=== PATIENT | female | born 1975 | race Caucasian/White ===

== ENCOUNTER 2016-08-09 19:44 | Emergency (ER) | payer MEDICARE, MEDICAID ==
[~2016-08-09] VITALS: Ht 162.6 cm; Wt 100.0 kg
[2016-08-09 19:58] VITALS: BP 125/93; PULSE 79; RESP 12; O2SAT 97
--- NOTE | 2016-08-09 20:08 | ED.REPORT ---
HPI-Extremity Problem Upper Date of Service Aug 09, 2016 ED Provider: Truman Nelson MD Pt is a 41 y.o. female who presents to the ED c/o left hand pain onset today. Pt states that she got it stuck in a bed cot when she was closing it. She states that it took her several minutes to get her hand free. She denies any other injuries. Nursing Notes Stated Complaint: LEFT HAND PAIN Chief Complaint: Extremity Trauma Nursing Notes Reviewed: Yes Allergies: Coded Allergies: Sulfa (Sulfonamide Antibiotics) (Verified Allergy, Intermediate, rash, 08/09) General Time Seen by MD: 20:08 Chief Complaint Hand Injury left Hx Obtained From: Patient Arrived By: Walk-in Onset Occurred: 1 - 4 hours ago Symptom Duration: Since onset Caused by: Accidental, Crushing injury Location: : Hand left Quality: Painful Severity: Current: Moderate Recent Healthcare: No recent doctor visit, No recent hospitalization Similar Sx Previous: No Past Medical History Past Medical History Healthy Past Surgical History None reported Ambulatory Status Independent Review of Systems Musculoskeletal: Reports: Extremity pain (Left hand) Complete sys rev & neg: except as marked. Physical Exam Initial Vital Signs Vital Signs (First) Date Time Temp Pulse Resp B/P Pulse Ox O2 Delivery O2 Flow Rate FiO2 08/09/16 19:58 36.6 79 12 125/93 97 Room Air Initial VS: Reviewed Head / Eyes: Atraumatic, Normocephalic Abdomen / GI: No distention Lower Extremities: Vascular intact, Neuro intact, No swelling, No tenderness Skin: Warm, Dry, No cyanosis Neurologic: Alert, Oriented, Nonfocal Psychiatric: Mood/affect normal, Behavior normal, Normal thought content General/Constitutional: Awake, Alert, No acute distress, Well appearing, Well developed, Well hydrated, Well nourished, Not toxic appearing Respiratory / Chest: Atraumatic, Breath sounds NL, Breath sounds = bilat, No respiratory distress, No rales, No rhonchi, No wheezing, No retractions Cardiovascular: Heart rate NL, Regular rhythm, Heart sounds NL, No gallop, No murmurs, No rubs, Peripheral circulation NL Wrist / Hand: Full range of motion, No deformity, Neurologic intact, Vascular intact Left Hand: Positive: Ecchymosis present (base of thumb and interdigital space between 1st and 2nd fingers), Swelling present..., Negative: Deformity present, ROM reduced Trauma / Burn / Environmental: Positive: Abrasion (interdigital space between 1st and 2nd finger) No scaphoid tenderness Interpretation & Diagnostics X-Ray Interpretation Xray Interpretation: IMPRESSION: No acute bony injuries of the left hand. Dictated by: Rahul Saini M.D. on 08/09/2016 at 20:36 Approved by: Rahul Saini M.D. on 08/09/2016 at 20:36 X-Ray Ordered: Hand left Re-Eval/Medical Decision Med Decision/Clinical Course Patient is a 41-year-old female in generally good health presents with left hand pain after pinching the intertriginous region of her left first and second fingers and a piece of furniture. X-rays demonstrate no acute fractures. She has ecchymosis and swelling about the region though is neurovascularly intact and skin is intact. She was given ibuprofen and an ice pack. She was also given a thumb spica splint for comfort. No evidence of scaphoid tenderness to suggest occult scaphoid fracture. Follow-up and return precautions were reviewed in detail. Of note she will follow up with her primary care physician in a week for repeat x-rays should she have any ongoing pain. She was discharged in good condition. Re-Evaluation/Progress : Time of Eval: 21:19 Re-Evaluation/Progress Note: Physical exam performed. Discussed plan for discharge, pt understands and agrees with plan. Discharge & Departure Impression: Primary Impression: Traumatic ecchymosis of left hand Encounter type: initial encounter Qualified Code: S60.222A - Contusion of left hand, initial encounter Additional Impression: Left hand pain Disposition: Home Discharge Condition All VS Reviewed: Yes Condition: Stable Additional Instructions: You were seen here today for left hand pain. Your imaging was reassuring and no fracture was seen. If your pain does not improve I recommend you follow-up with orthopedics for a repeat x-ray. Use the thumb spike as needed for immobilization and pain control. Return if you experience numbness, tingling, decreased sensation, increased pain, or any new or worsening symptoms. Thank you for entrusting us with your care today. Referrals: OTHER,PHYSICIAN (PCP) [facility] Scribe Attestation Portions of this note were transcribed by Akshat Liz. I, Dr. Del Monte Forest personally performed the history, physical exam and medical decision-making; I reviewed and confirmed the accuracy of the information in the transcribed note. Signed by: Daija Reza, 08/09/16 and 2124. copies to: [facility] Truman Nelson MD Aug 09, 2016 20:08 AKSHAT LIZ Aug 09, 2016 21:18
--- NOTE | 2016-08-09 20:38 | DRSVH ---
PROCEDURE: X-RAY LEFT HAND, MINIMUM THREE VIEWS ([id number]) INDICATIONS: 41 year-old female with left hand injury between the first and second metacarpal. TECHNIQUE: 3 views of the hand(s) acquired. COMPARISON: None. FINDINGS: Bones: No fractures or dislocations. Carpal bones are normally aligned. No suspicious bony lesions . Soft tissues: No suspicious soft tissue calcifications. IMPRESSION: No acute bony injuries of the left hand. Dictated by: Rahul Saini M.D. on 08/09/2016 at 20:36 Approved by: Rahul Saini M.D. on 08/09/2016 at 20:36
== END 2016-08-09 21:50 | disposition home or self-care (01) ==
LOC: SED 19:44
DX: S60.222A Contusion of left hand, initial encounter (principal); W23.0XXA Caught, crushed, jammed, or pinched between moving objects, initial encounter; Y93.89 Activity, other specified; Y92.22 Religious institution as the place of occurrence of the external cause; Y99.8 Other external cause status; Z88.2 Allergy status to sulfonamides